=== PATIENT | male | born 1965 | race Caucasian/White ===

== ENCOUNTER 2017-05-17 09:07 | Emergency (ER) | payer OTHER ==
[~2017-05-17] VITALS: Ht 180.3 cm; Wt 117.5 kg
[2017-05-17 09:53] LABS: Basophils # (auto) 0.1 uL; Basophils % (auto) 0.4 % (0.0-2.0); CONDITION Y; DEFINITIVE SEE PRINTOUT; Eosinophils # (auto) 0.1 uL; Eosinophils % (auto) 0.6 % (0.0-7.0); Hematocrit 52.9 % (41.0-53.0); Hemoglobin 18.8 g/dL (13.5-17.5); Lymphocytes # (auto) 2.4 uL; Lymphocytes % (auto) 17.2 % (10.0-50.0); Mean Corpuscular Hemoglobin 33.5 pg (28.0-32.0); Mean Corpuscular Hgb Conc. 35.5 g/dL (32.0-36.0); Mean Corpuscular Volume 94.3 fL (80.0-100.0); Mean Platelet Volume 8.1 fL (7.4-10.4); Monocytes % (auto) 7.6 % (0.0-12.0); Neutrophils # (auto) 10.2 uL; Neutrophils % (auto) 74.2 % (37.0-80.0); Platelet Count (auto) 289 10^3/uL (140-450); Red Cell Distribution Width 13.3 % (11.6-16.0); White Blood Cell 13.7 10^3/uL (4.4-10.8)
[2017-05-17 09:56] LABS: Albumin 4.2 g/dL (3.4-5.0); Anion Gap 11 (5-15); Aspartate Aminotransferase 28 U/L (15-37); Blood Urea Nitrogen 10 mg/dL (7-18); Calcium 9.9 mg/dL (8.5-10.1); Carbon Dioxide 23 mmol/L (21-32); Chloride 106 mmol/L (98-107); Glucose 111 mg/dL (74-106); Magnesium 1.8 mg/dL (1.6-2.6); Potassium 4.2 mmol/L (3.5-5.1); Sodium 140 mmol/L (136-145)
[2017-05-17 09:58] LABS: Bilirubin, Total 0.7 mg/dL (0.2-1.0); GFR African American 102 mL/min; GFR Non-African American 84 mL/min; Total Protein 7.8 g/dL (6.4-8.2)
[2017-05-17 10:02] LABS: Alkaline Phosphatase 119 U/L (45-117)
[2017-05-17] MEDS ORDERED: SODIUM CHLORIDE 0.9% 1,000 ML IV ONE (10:26)
[2017-05-17] MEDS ORDERED: LEVOFLOXACIN 750MG 150 ML IV ONE (10:30)
[2017-05-17 10:36] LABS: BUN/Creatinine Ratio 10.1
[2017-05-17] MEDS ORDERED: METOPROLOL TARTRATE 1MG/1ML-5ML VIAL IV ONE (12:00)
[2017-05-17] MEDS ORDERED: FUROSEMIDE 20 MG/2 ML VIAL IV ONE (12:00)
[2017-05-17 12:02] LABS: B-Type Natriuretic Peptide 16.86 pg/mL (0-100); Temperature: 22.9 C (20.0-25.0)
[2017-05-17] MEDS ORDERED: ASPirin 81 mg TAB PO ONE (12:15)
[2017-05-17] MEDS ORDERED: NITROGLYCERIN 0.4 MG SL TAB SL ONE (12:15)
[2017-05-17 16:42] VITALS: BP 144/88
== END 2017-05-17 16:59 | disposition short-term general hospital (02) ==
LOC: ER 09:07
DX: I11.0 Hypertensive heart disease with heart failure (principal); I50.9 Heart failure, unspecified; I48.91 Unspecified atrial fibrillation; F17.210 Nicotine dependence, cigarettes, uncomplicated; Z88.1 Allergy status to other antibiotic agents
CPT/HCPCS: 36415; 71020; 80053; 83735; 83880; 84484; 85025; 93005; 96365; 96366; 96375; 99285; J1940; J1956; J7030